=== PATIENT | male | born 1975 | race Caucasian/White ===

== ENCOUNTER 2018-06-12 06:56 | Day surgery (SDC) | payer BC ==
[2018-06-12] MEDS: SOD CHLORIDE 0.9% 1,000 ML IV (06:30)
[~2018-06-12 06:56] MED LIST: CEFAZOLIN 2 GM/50 ML (PMX) 50 ML IVPB
[2018-06-12] MEDS ORDERED: BUPIVACAINE 0.25% (MPF) 30 ML INJ (09:11)
[2018-06-12 09:15] LABS: ADD MAN DIFF? NO
[2018-06-12 09:19] LABS: BASOPHILS % 0.7 % (0.0-2.0); EOSINOPHILS # 0.1 10^3/ul (0.0-0.5); EOSINOPHILS % 1.6 % (0.0-7.0); HEMATOCRIT 45.5 % (42.0-52.0); HEMOGLOBIN 15.5 g/dl (14.0-18.0); LYMPHOCYTES # 1.4 10^3/ul (0.8-2.9); LYMPHOCYTES % 30.6 % (15.0-51.0); MEAN CORPUSCULAR HEMOGLOBIN 28.5 pg (29.0-33.0); MEAN CORPUSCULAR HGB CONC 34.1 g/dl (32.0-37.0); MEAN CORPUSCULAR VOLUME 83.8 fl (82.0-101.0); MEAN PLATELET VOLUME 11.3 fl (7.4-10.4); MONOCYTE # 0.2 10^3/ul (0.3-0.9); MONOCYTES % 5.4 % (0.0-11.0); NEUTROPHIL # 2.8 10^3/ul (1.6-7.5); NEUTROPHILS % 61.7 % (39.0-77.0); PLATELET COUNT 185 10^3/UL (140-415); POSITIVE DIFF @See below; RED BLOOD COUNT 5.43 10^6/ul (4.70-6.10); RED CELL DISTRIBUTION WIDTH 12.9 % (11.5-14.5)
[2018-06-12 09:19] LABS: WHITE BLOOD COUNT 4.5 10^3/ul (4.8-10.8)
[2018-06-12] MEDS ORDERED: CEFAZOLIN 1 GM INJ (09:21)
[2018-06-12] MEDS ORDERED: FENTAnyl 50 MCG/ML VIAL (09:21)
[2018-06-12] MEDS ORDERED: ONDANSETRON 4 MG INJ (09:21)
[2018-06-12] MEDS ORDERED: PROPOFOL 20 ML (09:21)
[2018-06-12] MEDS ORDERED: MIDAZOLAM 1 MG/ML 2 ML INJ (09:21)
[2018-06-12 09:36] LABS: ALANINE AMINOTRANSFERASE 26 IU/L (13-69); ALBUMIN 5.2 g/dl (3.3-4.9); ALBUMIN/GLOBULIN RATIO 1.26; ALKALINE PHOSPHATASE 60 IU/L (42-121); ANION GAP 13 (5-13); ASPARTATE AMINO TRANSFERASE 39 IU/L (15-46); BILIRUBIN,INDIRECT 1.7 mg/dl (0-1.1); BILIRUBIN,TOTAL 1.7 mg/dl (0.2-1.3); BLOOD UREA NITROGEN 12 mg/dl (7-20); CALCIUM 10.2 mg/dl (8.4-10.2); CARBON DIOXIDE 27 mmol/L (21-31); CHLORIDE 103 mmol/L (97-110); CREATININE 0.89 mg/dl (0.61-1.24); Estimated GFR > 60 mL/min (>60); GLUCOSE 104 mg/dl (70-220); POTASSIUM 4.2 mmol/L (3.5-5.1); SODIUM 143 mmol/L (135-144); TOTAL PROTEIN 9.3 g/dl (6.1-8.1)
[2018-06-12] MEDS: LIDOCAINE 2% (MDV) 20 ML INJ (09:45)
[2018-06-12] MEDS: BUPIVACAINE 0.5% (SDV) 30 ML INJ (09:45)
[2018-06-12 09:48] LABS: PROTIME 12.2 Sec (11.9-14.9)
[2018-06-12 09:49] LABS: PARTIAL THROMBOPLASTIN TIME 28.6 Sec (23.0-35.0)
[2018-06-12] MEDS ORDERED: ONDANSETRON 4 MG INJ IV (10:00)
[2018-06-12] MEDS ORDERED: MIDAZOLAM 1 MG/ML 2 ML INJ IV (10:00)
[2018-06-12] MEDS ORDERED: IBUPROFEN 800 MG TAB PO (10:00)
[2018-06-12] MEDS ORDERED: OXYCODONE/ACETAMINOPHEN (5/325) TAB PO ×2 (10:00)
[2018-06-12] MEDS ORDERED: METOCLOPRAMIDE 10 MG INJ IV (10:00)
[2018-06-12] MEDS ORDERED: MEPERIDINE 25 MG INJ IV (10:00)
[2018-06-12] MEDS ORDERED: DIPHENHYDRAMINE 50 MG INJ IV (10:00)
[2018-06-12] MEDS ORDERED: FENTAnyl 50 MCG/ML VIAL IV ×3 (10:00)
== END 2018-06-12 11:15 | disposition home or self-care (01) ==
LOC: SDS 06:56
DX: L72.0 Epidermal cyst (principal)
CPT/HCPCS: 14000; 80053; 85025; 85610; 85730; 88307